=== PATIENT | female | born 1990 | race Two or more races ===

== ENCOUNTER 2016-10-01 02:17 | Emergency (ER) | payer OTHER ==
[2016-10-01] MEDS ORDERED: ONDANSETRON 4 MG/2ML 2 ML VIAL ONE ×3 (02:41→05:15)
[2016-10-01] MEDS ORDERED: HYDROMORPHONE HCL 1 MG/ML SYRINGE ONE (02:41)
[2016-10-01] MEDS ORDERED: KETOROLAC TROMETHAMINE 30 MG/ML 1 ML VIAL ONE (02:41)
[2016-10-01 02:51] LABS: ABSOLUTE NEUTROPHIL COUNT 11.7 K/mm3 (1.8-7.7); BASO # 0.1 K/mm3 (0.0-0.2); BASO % 0.6 % (0.2-1.0); EOS # 0.1 (0.0-0.5); EOS % 0.7 % (0.9-2.9); HEMATOCRIT 41.5 % (37.0-47.0); HEMOGLOBIN 13.7 gm/l (12.0-16.0); IMM NEUT # 0.1 K/mm3 (0-0.2); IMM NEUT% 0.5 % (0-1); LYMPH % 13.9 % (15-45); MEAN CELL VOLUME 87.4 fl (81.0-99.0); MEAN CORPUSCULAR HEMOGLOBIN 28.8 pg (27.0-31.0); MEAN PLATELET VOLUME 10.5 fl (7.4-10.4); MONO # 0.6 (0.0-0.8); MONO % 3.8 % (4-12); NEUT % 80.5 % (43-75); PLATELET COUNT 270 K/mm3 (130-400); RED CELL DISTRIBUTION WIDTH 12.9 % (11.5-14.5)
[2016-10-01] MEDS ORDERED: SODIUM CHLORIDE 0.9% 1,000 ML ONE (02:51)
[2016-10-01] MEDS ORDERED: LIDOCAINE Viscous 2% 15 ML UDCUP ONE (03:04)
[2016-10-01 03:08] LABS: CALCIUM 9.1 mg/dL (8.6-10.3)
[2016-10-01] MEDS ORDERED: DIPHTH,PERTUSS(ACELL),TET VAC 0.5 ML VIAL IM V ONE (04:55)
[2016-10-01] MEDS ORDERED: CEFTRIAXONE 1 GRAM DUPLEX 50 ML IV ONE (05:04)
[2016-10-01] MEDS ORDERED: FENTANYL 100 MCG/2 ML VIAL ONE (05:16)
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
== END 2016-10-01 05:59 | disposition short-term general hospital (02) ==
LOC: ED 02:17
DX: S02.32XA Fracture of orbital floor, left side, initial encounter for closed fracture (principal); F07.81 Postconcussional syndrome; R11.2 Nausea with vomiting, unspecified; Z23 Encounter for immunization; Y04.2XXA Assault by strike against or bumped into by another person, initial encounter; Y92.29 Other specified public building as the place of occurrence of the external cause